=== PATIENT | female | born 1985 | race Caucasian/White ===

== ENCOUNTER 2016-07-06 18:49 | Inpatient (IN) | payer OTHER ==
[~2016-07-06] VITALS: Ht 163.8 cm; Wt 97.1 kg
[2016-07-06] MEDS ORDERED: CITRIC ACID/SODIUM CITRATE 30 ML UDC PO SCH (19:25)
[2016-07-06] MEDS ORDERED: LACTATED RINGERS 1,000 ML IV SCH (19:25)
[2016-07-06] MEDS ORDERED: CITRIC ACID/SODIUM CITRATE 30 ML UDC ONE (19:51)
[2016-07-06] MEDS ORDERED: ceFAZolin 1,000 MG VIAL ONE ×2 (19:51→21:06)
[2016-07-06 19:59] LABS: BASOPHILS # (AUTO) 0.1 K/uL (0.00-0.22); BASOPHILS % (AUTO) 0.7 % (0.0-2.0); EOSINOPHILS # (AUTO) 0.1 K/uL (0-0.4); EOSINOPHILS % (AUTO) 1.5 % (0.0-4.0); HEMOGLOBIN 12.7 g/dL (12.0-16.0); LYMPHOCYTES # (AUTO) 1.8 K/uL (2.5-16.5); LYMPHOCYTES % (AUTO) 21.6 % (20.5-51.1); MEAN CORPUSCULAR HEMOGLOBIN 31 pg (27-31); MEAN CORPUSCULAR HGB CONC 33 g/dL (33-37); MEAN CORPUSCULAR VOLUME 93 fL (80-94); MONOCYTES # (AUTO) 0.5 K/uL (0.8-1.0); MONOCYTES % (AUTO) 6.3 % (1.7-9.3); NEUTROPHILS # (AUTO) 5.9 K/uL (1.8-7.7); NEUTROPHILS % (AUTO) 69.9 % (42.2-75.2); PLATELET COUNT (AUTO) 189 K/uL (140-450); RED CELL DISTRIBUTION WIDTH 13.1 % (11.6-13.7); WHITE BLOOD COUNT (AUTO) 8.4 K/uL (4.8-10.8)
[2016-07-06 20:03] LABS: APPEARANCE,URINE HAZY (CLEAR); BILIRUBIN,URINE NEGATIVE (NEGATIVE); BLOOD, URINE NEGATIVE (NEGATIVE); COLOR,URINE YELLOW (YELLOW); LEUKOCYTE ESTERASE ,URINE NEGATIVE (NEGATIVE); NITRITE, URINE NEGATIVE (NEGATIVE); PROTEIN,URINE NEGATIVE (NEGATIVE); UGLUCOSE NEGATIVE (NEGATIVE); UROBILINOGEN,URINE 0.2 EU/dL (0.2 - 1)
[2016-07-06 20:08] LABS: BACTERIA,URINE 1+ /HPF (None Seen); MUCUS,URINE None Seen /LPF (None Seen); RBC,URINE 0-3 /HPF (0-5); SQUAMOUS EPITHELIAL CELL,UR 20-40 /LPF (0-3 (FEW)); WBC,URINE 0-3 /HPF (0-5)
[2016-07-06] MEDS ORDERED: FERR325E14 PO (20:35)
[2016-07-06] MEDS ORDERED: PREN-546 PO ×2 (20:35)
[2016-07-06 20:39] VITALS: BP 127/76
[2016-07-06] MEDS ORDERED: OXYTOCIN 10 UNITS/ML VIAL ONE ×2 (21:03→21:06)
[2016-07-06] MEDS ORDERED: TRIMETHOBENZAMIDE 200 MG/2 ML SYR IM PRN (21:05)
[2016-07-06] MEDS ORDERED: TEMAZEPAM 15 MG CAP PO PRN (21:05)
[2016-07-06] MEDS ORDERED: METHYLERGONOVINE 0.2 MG/ML AMP IM PRN (21:05)
[2016-07-06] MEDS ORDERED: IBUPROFEN 800 MG TAB PO PRN (21:05)
[2016-07-06] MEDS ORDERED: OXYTOCIN 20 UNITS/LR PREMIX 1,000 ML IV SCH ×2 (21:05→21:30)
[2016-07-06] MEDS ORDERED: MEASLES, MUMPS, AND RUBELLA 1 VIAL SQVAC PRN (21:05)
[2016-07-06] MEDS ORDERED: SIMETHICONE 80 MG TAB.CHEW PO PRN (21:05)
[2016-07-06] MEDS ORDERED: KETOROLAC 30 MG/ML VIAL ONE (21:06)
[2016-07-06] MEDS ORDERED: BUPIVACAINE-MPF 0.75% 10 ML VIAL INJ ONE (21:06)
[2016-07-06] MEDS ORDERED: METOCLOPRAMIDE 10 MG/2 ML INJ VIAL ONE (21:06)
[2016-07-06] MEDS ORDERED: ONDANSETRON 4 MG/2 ML VIAL ONE (21:06)
[2016-07-06] MEDS ORDERED: MORPHINE PRES FREE 10 MG/10 ML AMP IV ONE (21:13)
[2016-07-06] MEDS ORDERED: NALOXONE 0.4 MG/ML VIAL IVP PRN ×2 (21:30)
[2016-07-06] MEDS ORDERED: KETOROLAC 30 MG/ML VIAL IVP PRN (21:30)
[2016-07-06] MEDS: diphenhydrAMINE 50 MG/ML VIAL IVP PRN (22:20)
[2016-07-06] MEDS ORDERED: diphenhydrAMINE 50 MG/ML VIAL ONE (22:22)
[2016-07-06] MEDS ORDERED: OXYTOCIN 20 UNITS/LR PREMIX 1,000 ML IV ONE (22:32)
[2016-07-07] MEDS: diphenhydrAMINE 50 MG/ML VIAL IVP PRN ×3 (02:58→12:47)
[2016-07-07 06:11] LABS: BASOPHILS # (AUTO) 0.1 K/uL (0.00-0.22); BASOPHILS % (AUTO) 0.7 % (0.0-2.0); EOSINOPHILS # (AUTO) 0.2 K/uL (0-0.4); EOSINOPHILS % (AUTO) 1.7 % (0.0-4.0); HEMATOCRIT 35.4 % (36-48); HEMOGLOBIN 11.7 g/dL (12.0-16.0); LYMPHOCYTES % (AUTO) 18.7 % (20.5-51.1); MEAN CORPUSCULAR HEMOGLOBIN 30 pg (27-31); MEAN CORPUSCULAR HGB CONC 33 g/dL (33-37); MEAN CORPUSCULAR VOLUME 92 fL (80-94); MONOCYTES # (AUTO) 0.7 K/uL (0.8-1.0); MONOCYTES % (AUTO) 6.3 % (1.7-9.3); NEUTROPHILS # (AUTO) 7.4 K/uL (1.8-7.7); NEUTROPHILS % (AUTO) 72.6 % (42.2-75.2); PLATELET COUNT (AUTO) 175 K/uL (140-450); RED BLOOD CELL COUNT(AUTO) 3.85 MIL/uL (4.20-5.40); RED CELL DISTRIBUTION WIDTH 13.4 % (11.6-13.7); WHITE BLOOD COUNT (AUTO) 10.4 K/uL (4.8-10.8)
[2016-07-07] MEDS: KETOROLAC 30 MG/ML VIAL IVP PRN ×3 (08:43→14:17)
[2016-07-07] MEDS: oxyCODONE/APAP 5/325 MG 1 TAB TAB PO PRN (15:17)
[2016-07-07] MEDS ORDERED: diphenhydrAMINE 50 MG CAP PO PRN (18:00)
[2016-07-07] MEDS: DOCUSATE SOD/SENNA 50/8.6 MG 1 TAB PO SCH (20:45)
[2016-07-07] MEDS: HYDROcodone/APAP 5/325 MG 1 TAB TAB PO PRN (21:39)
[2016-07-08] MEDS: HYDROcodone/APAP 5/325 MG 1 TAB TAB PO PRN (07:50)
[2016-07-08] MEDS: IBUPROFEN 800 MG TAB PO PRN ×2 (12:53→19:01)
[2016-07-08] MEDS: DOCUSATE SOD/SENNA 50/8.6 MG 1 TAB PO SCH (22:07)
[2016-07-08] MEDS: oxyCODONE/APAP 5/325 MG 1 TAB TAB PO PRN (22:09)
[2016-07-09] MEDS: oxyCODONE/APAP 5/325 MG 1 TAB TAB PO PRN ×2 (03:28→10:19)
[2016-07-09] MEDS ORDERED: IBUP-2213 PO (09:08)
== END 2016-07-09 13:45 | disposition home or self-care (01) | DRG 540 ==
LOC: MLD 18:49 → MFCC 22:12
PROVIDERS: ADMIT Obstetrics & Gynecology; ATTEND Obstetrics & Gynecology
PROC: 0UB70ZZ Excision of Bilateral Fallopian Tubes, Open Approach (ICD-10-PCS; 2016-07-06)
PROC: 10D00Z1 Extraction of Products of Conception, Low, Open Approach (ICD-10-PCS; principal; 2016-07-06 21:00)
PROC: 3E0234Z Introduction of Serum, Toxoid and Vaccine into Muscle, Percutaneous Approach (ICD-10-PCS; 2016-07-08)
DX: O34.211 Maternal care for low transverse scar from previous cesarean delivery (principal); Z23 Encounter for immunization; O09.13 Supervision of pregnancy with history of ectopic pregnancy, third trimester; Z37.0 Single live birth; Z3A.39 39 weeks gestation of pregnancy; Z30.2 Encounter for sterilization; Z83.3 Family history of diabetes mellitus; Z81.3 Family history of other psychoactive substance abuse and dependence
CPT/HCPCS: 36415; 51702; 81001; 85025; 86592; 86886; 86900; 86901; 87086; 90715; J0690; J1200; J1885; J2270; J2405; J2590; J2765; J3490; J7060; J7120; Q0163